=== PATIENT | female | born 1995 | race Caucasian/White ===

== ENCOUNTER 2016-10-08 00:32 | Emergency (ER) | payer OTHER, MEDICAID ==
[~2016-10-08] VITALS: Ht 162.6 cm; Wt 60.0 kg
[~2016-10-08 00:32] MED LIST: ACYC200C PO; ALBU17AE4; HYDR-3989 PO; IBUP-1547 PO
--- OUTSIDE RECORDS SUMMARY | 2016-10-08 00:36 | XMS REPORT | Referral Summary ---
Author Author [facility] Organization [facility] Address Unknown Phone Unavailable Care Team Providers Care Colliery Clerk Name Role Phone Ara Newell Primary Care Physician [phone] Encounter Date(s): 04/07/16 - 04/07/16 [facility], [address] [place] [id number] Discharge Diagnosis: Tobacco use Discharge Diagnosis: Acute URI Discharge Diagnosis: Wheezes Discharge Diagnosis: Currently Discharge Disposition: 01-Home or Self Care Attending Physician: Keagan Saleh PA-C Admitting Physician: Keagan Saleh PA-C Vital Signs Most recent to 1 oldest [Reference Range]: Temperature Tympanic 36.4 degC [36.6-38.1 degC] *LOW* (04/07/16 4:39 PM) Peripheral Pulse 93 bpm Rate [60-100 bpm] (04/07/16 4:39 PM) Blood Pressure 122/58 mmHg [90-140/60-90 mmHg] (04/07/16 4:39 PM) SpO2 98 % (04/07/16 4:39 PM) Problem List Condition Effective Dates Status Health Status Informant Unspec Asthma W/O Active Status Asthmati(Confirmed) Depressive disorder, Active not elsewhere classified(Confirmed ) Dysuria(Confirmed) Active Urinary Active frequency(Confirmed) Irregular menstrual Active cycle(Confirmed) Other malaise and Active fatigue(Confirmed) Trigonitis(Confirmed Active ) Urgency of Active urination(Confirmed) Urinary tract Active infection, site not specified(Confirmed) Allergies, Adverse Reactions, Alerts No Known Medication Allergies Medications albuterol CFC free 90 mcg/inh inhalation aerosol 1 puffs, Inhalation, QID, as needed for wheezing, # 18 g, 0 Refill(s), Pharmacy : [id number] Start Date: 04/07/16 Status: Ordered Results No data available for this section Immunizations Vaccine Date Refusal Reason tetanus/diphth/pertuss (Tdap) adult/adol 12/14/06 human papillomavirus vaccine 12/06/08 meningococcal conjugate vaccine 12/14/06 Procedures Procedure Date Related Diagnosis Body Site Cystoscopy1 05/29/09 Dilation2 05/29/09 Hydrodistention Of The Bladder3 05/29/09 Intraoperative Cystogram4 05/29/09 Lazer Vaporization5 05/29/09 SLT Laser Vaporization6 05/29/09 Urethral Calibration7 05/29/09 Video Cysto8 05/29/09 1Cystoscopy/Lazer Vaporization Video Cysto, Urethral Calibration And Dilation, Hydrodistention Of The Bladder, Intraopertaive Cystogram, SLT Laser Vaporization Of Chrnoic Diffuse Trigonitis, Due To Recurrent UTI's, Low Back Pain, Frequency, Urgency And Burning Sensation. (Dr. Lemos) 2Cystoscopy/Lazer Vaporization Video Cysto, Urethral Calibration And Dilation, Hydrodistention Of The Bladder, Intraopertaive Cystogram, SLT Laser Vaporization Of Chrnoic Diffuse Trigonitis, Due To Recurrent UTI's, Low Back Pain, Frequency, Urgency And Burning Sensation. (Dr. Lemos) 3Cystoscopy/Lazer Vaporization Video Cysto, Urethral Calibration And Dilation, Hydrodistention Of The Bladder, Intraopertaive Cystogram, SLT Laser Vaporization Of Chrnoic Diffuse Trigonitis, Due To Recurrent UTI's, Low Back Pain, Frequency, Urgency And Burning Sensation. (Dr. Lemos) 4Cystoscopy/Lazer Vaporization Video Cysto, Urethral Calibration And Dilation, Hydrodistention Of The Bladder, Intraopertaive Cystogram, SLT Laser Vaporization Of Chrnoic Diffuse Trigonitis, Due To Recurrent UTI's, Low Back Pain, Frequency, Urgency And Burning Sensation. (Dr. Lemos) 5Cystoscopy/Lazer Vaporization Video Cysto, Urethral Calibration And Dilation, Hydrodistention Of The Bladder, Intraopertaive Cystogram, SLT Laser Vaporization Of Chrnoic Diffuse Trigonitis, Due To Recurrent UTI's, Low Back Pain, Frequency, Urgency And Burning Sensation. (Dr. Lemos) 6Cystoscopy/Lazer Vaporization Video Cysto, Urethral Calibration And Dilation, Hydrodistention Of The Bladder, Intraopertaive Cystogram, SLT Laser Vaporization Of Chrnoic Diffuse Trigonitis, Due To Recurrent UTI's, Low Back Pain, Frequency, Urgency And Burning Sensation. (Dr. Lemos) 7Cystoscopy/Lazer Vaporization Video Cysto, Urethral Calibration And Dilation, Hydrodistention Of The Bladder, Intraopertaive Cystogram, SLT Laser Vaporization Of Chrnoic Diffuse Trigonitis, Due To Recurrent UTI's, Low Back Pain, Frequency, Urgency And Burning Sensation. (Dr. Lemos) 8Cystoscopy/Lazer Vaporization Video Cysto, Urethral Calibration And Dilation, Hydrodistention Of The Bladder, Intraopertaive Cystogram, SLT Laser Vaporization Of Chrnoic Diffuse Trigonitis, Due To Recurrent UTI's, Low Back Pain, Frequency, Urgency And Burning Sensation. (Dr. Lemos) Social History Social History Type Response Smoking Status Current every day smoker Assessment and Plan Extracted from: Title: cough Author: Keagan Saleh PA-C Date: 04/07/16 Assessment/Plan Acute URI Albuterol inhaler prescribed. 1 puff as needed every 4-6 hours Recommend supportive care. Rest. Practice good hand hygiene. Increase fluids. Patient was given a handout of mdgi-stx-yhlqhet medications that were recommended for the patient. Tylenol/Ibuprofen as needed for fever or pain. FU with PCP if not improving, worsening symptoms, or as needed. Questions were answered. Patient verbalized understanding. Patient left in stable condition. Currently Tobacco use Smoking cessation recommended Wheezes As above
--- OUTSIDE RECORDS SUMMARY | 2016-10-08 00:36 | XMS REPORT | Referral Summary ---
Author Author [facility] Organization [facility] Address Unknown Phone Unavailable Care Team Providers Care It Program Manager Name Role Phone Ara Newell Primary Care Physician [phone] Encounter Date(s): 04/16/16 - 04/16/16 [facility], [address] [place] [id number] Discharge Diagnosis: History of herpes genitalis Discharge Diagnosis: Discharge Diagnosis: Late care in second trimester Discharge Disposition: 01-Home or Self Care Attending Physician: Niki Lemos APRN Admitting Physician: Niki Lemos APRN Vital Signs Most recent to 1 oldest [Reference Range]: Peripheral Pulse 80 bpm Rate [60-100 bpm] (04/16/16 11:05 AM) Blood Pressure 120/60 mmHg [90-140/60-90 mmHg] (04/16/16 11:05 AM) SpO2 99 % (04/16/16 11:05 AM) Problem List Condition Effective Dates Status Health Status Informant Unspec Asthma W/O Active Status Asthmati(Confirmed) Depressive disorder, Active not elsewhere classified(Confirmed ) Dysuria(Confirmed) Active Urinary Active frequency(Confirmed) Irregular menstrual Active cycle(Confirmed) Other malaise and Active fatigue(Confirmed) Trigonitis(Confirmed Active ) Urgency of Active urination(Confirmed) Urinary tract Active infection, site not specified(Confirmed) Allergies, Adverse Reactions, Alerts No Known Medication Allergies Medications acyclovir 400 mg oral tablet 400 mg 1 tabs, Oral, q8hr, 1 tab every 8hrs until delivery, # 90 tabs, 2 Refill( s), Pharmacy: [id number], 1 tabs Oral q8hr,Instr:1 tab every 8hrs until delivery Start Date: 04/16/16 Stop Date: 08/15/16 Status: Ordered albuterol CFC free 90 mcg/inh inhalation aerosol 1 puffs, Inhalation, QID, as needed for wheezing, # 18 g, 0 Refill(s), Pharmacy : [id number] Start Date: 04/07/16 Status: Ordered Elite oral tablet 1 tabs, Oral, Daily, # 100 tabs, 4 Refill(s), Pharmacy: [id number] Start Date: 04/16/16 Status: Ordered Results No data available for [...] smoker Assessment and Plan Extracted from: Title: Office Visit Note Author: Niki Lemos APRN Date: 04/16/16 Assessment/Plan History of herpes genitalis Prescription for acyclovirwas authorized with instructions to the patient. Late care in second trimester Will obtain sonogram. Prescription written for . [facility] [employer] providerfor obstetrical care. Ordered: US After 1st Trimester
--- OUTSIDE RECORDS SUMMARY | 2016-10-08 00:36 | XMS REPORT | Continuity of Care Document ---
Author Author [facility] Organization [facility] Address Unknown Phone Unavailable Allergies Active Description Code Type Severity Reaction Onset Reported/Identified Relationship to Patient Clinical Status Yes No Known Allergies No Known Allergies Drug Allergy Unknown N/A 07/31/2016 Medications Problems Date Dx Coded Attending Type Code Diagnosis Diagnosed By 07/31/2016 Katy Osman MD B00.9 HERPESVIRAL INFECTION, UNSPECIFIED 07/31/2016 Katy Osman MD B19.20 UNSPECIFIED VIRAL HEPATITIS C WITHOUT HEPATIC COMA 07/31/2016 Katy Osman MD F17.200 NICOTINE DEPENDENCE, UNSPECIFIED, UNCOMPLICATED 07/31/2016 Katy Osman MD O34.211 MATERN CARE FOR LOW TRANSVERSE SCAR FROM PREV CESA 07/31/2016 Katy Osman MD O98.42 VIRAL HEPATITIS COMPLICATING CHILDBIRTH 07/31/2016 Katy Osman MD O98.52 OTHER VIRAL DISEASES COMPLICATING CHILDBIRTH 07/31/2016 Katy Osman MD O99.334 SMOKING (TOBACCO) COMPLICATING CHILDBIRTH 07/31/2016 Katy Osman MD Z37.0 SINGLE LIVE 07/31/2016 Katy Osman MD Z3A.39 39 WEEKS GESTATION OF Procedures Code Description Performed By Performed On [id number] RESECTION OF BILATERAL FALLOPIAN TUBES, OPEN APPRO Katy Osman MD 07/31/2016 [id number] EXTRACTION OF POC, LOW CERVICAL, OPEN APPROACH Katy Osman MD 07/31/2016 Results Test Result Range CBC - 07/31/16 12:05 MEAN CELL HGB 28.3 pg 27.0-33.0 MEAN CELL HGB CONCENTRATION 32.5 g/dL 32.0-37.0 MEAN CELL VOLUME 87.3 fl 80.0-100.0 RED BLOOD CELL 4.48 m/cumm 4.00-6.00 RED CELL DISTRIBUTION WIDTH 15.5 % 11.0- 15.6 WHITE BLOOD CELL 14.7 k/cumm 5.0-10.0 HEMOGLOBIN 12.7 gm/dL 12.0-16.0 HEMATOCRIT 39.1 % 37.0-47.0 PLATELET COUNT 223 k/cumm 150-400 UR DRUGS OF ABUSE SCREEN - 07/31/16 17:40 UR AMPHETAMINES SCREEN NEG (<1000 ng/mL) NEGATIVE UR BARBITURATE SCREEN NEG (< 200 ng/mL) NEGATIVE DRUGS OF ABUSE SCREEN COMMENT UR OPIATES SCREEN POS (> 300 ng/mL) NEGATIVE UR PHENCYCLIDINE (PCP) SCREEN NEG (< 25 ng/mL) NEGATIVE UR CANNABINOIDS (THC) SCREEN NEG (< 50 ng/mL) NEGATIVE UR COCAINE METABOLITE SCREEN NEG (< 300 ng/mL) NEGATIVE UR METHADONE SCREEN NEG (< 300 ng/mL) NEGATIVE UR BENZODIAZEPINE SCREEN NEG (< 200 ng/mL) NEGATIVE HEMOGLOBIN - 07/31/16 19:19 MEAN CELL VOLUME 88.3 fl 80.0-100.0 HEMOGLOBIN 11.7 gm/dL 12.0-16.0 AB HEPATITIS C - 07/31/16 19:19 AB HEPATITIS C NEGATIVE NEGATIVE HEMOGLOBIN - 08/01/16 05:16 MEAN CELL VOLUME 87.7 fl 80.0-100.0 HEMOGLOBIN 10.5 gm/dL 12.0-16.0 Encounters ACCT No. Visit Date/Time Discharge Status Pt. Type Provider Facility Loc./Unit Complaint [id number] 07/31/2016 11:05:00 2016 11:10:00 DIS Inpatient Jacqui CANAS, Katy Chiang [facility] W.5WH
[2016-10-08 00:40] VITALS: Ht 162.6 cm; Wt 60.0 kg
[2016-10-08] MEDS ORDERED: NO DAILY MEDS (01:12)
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
[2016-10-08] MEDS ORDERED: TETANUS,DIPHTH,a PERTUS (Tdap) 0.5 ML VIAL IM ONE (01:15)
[2016-10-08] MEDS ORDERED: NORMAL SALINE 1,000 ML IV ONE (01:15)
[2016-10-08] MEDS ORDERED: MORPHINE SULFATE 4 MG SYRINGE IV ONE (01:15)
[2016-10-08] MEDS ORDERED: ONDANSETRON 4mg/2ml INJECTION IV ONE (01:15)
--- OUTSIDE RECORDS SUMMARY | 2016-10-08 01:22 | XMS REPORT | Continuity of Care Document ---
Author Author [facility] Organization [facility] Address Unknown Phone Unavailable Allergies [...] Procedures Code Description Performed By Performed On [id number] RESECTION OF BILATERAL FALLOPIAN TUBES, OPEN APPRO Katy Osman MD 07/31/2016 [id number] EXTRACTION OF POC, LOW CERVICAL, OPEN APPROACH [...] Status Pt. Type Provider Facility Loc./Unit Complaint [id number] 07/31/2016 11:05:00 2016 11:10:00 DIS Inpatient Jacqui CANAS, Katy Chiang [facility] W.5WH
[2016-10-08 01:28] VITALS: BP 124/84; PULSE 68; RESP 14; TEMP 98.7; O2SAT 99
--- NOTE | 2016-10-08 01:28 | NUR ---
DEPART ED/EMS PT DEPARTED WITH EMS AT THIS TIME.
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
== END 2016-10-08 01:28 | disposition home or self-care (01) ==
LOC: ED 00:32
DX: T28.0XXA Burn of mouth and pharynx, initial encounter (principal); T23.261A Burn of second degree of back of right hand, initial encounter; T20.16XA Burn of first degree of forehead and cheek, initial encounter; T20.13XA Burn of first degree of chin, initial encounter; T31.0 Burns involving less than 10% of body surface; X12.XXXA Contact with other hot fluids, initial encounter; Y93.9 Activity, unspecified; Y92.9 Unspecified place or not applicable; Y99.8 Other external cause status
CPT/HCPCS: 90471; 90715; 96374; 96375; 99285; J2405; J7030; 96372